=== PATIENT | female | born 1995 | race Caucasian/White ===

== ENCOUNTER 2020-05-02 14:01 | Emergency (ER) | payer OTHER ==
[2020-05-02 14:52] LABS: BASOPHIL 0.2 % (0-2); HCT 39.4 % (37.0-47.0); HGB 12.2 g/dl (12.5-16.0); LYMPHOCYTE 24.1 % (15-48); MCH 23.7 pg (25.0-31.0); MCV 76.7 fL (78.0-100.0); MONOCYTE 5.9 % (0-12); MPV 10.6 fL (6.0-9.5); NEUTROPHIL 65.4 % (41-80); NRBC 0; PLT 463 K/uL (150-400); RBC 5.14 M/uL (4.20-5.40); RDW 15.8 % (11.5-14.0); WBC 12.8 K/uL (4.0-10.5)
[2020-05-02 14:55] LABS: BILIRUBIN NEGATIVE (NEGATIVE); BLOOD NEGATIVE Ery/uL (NEGATIVE); CLARITY CLEAR (CLEAR); COLOR YELLOW (YELLOW); GLUCOSE (U) 3+ mg/dL (NORMAL); LEUKOCYTES NEGATIVE Leu/uL (NEGATIVE); NITRITE NEGATIVE (NEGATIVE); PROTEIN NEGATIVE (NEGATIVE); SPECIFIC GRAVITY 1.025 (1.001-1.030); UROBILINOGEN 0.2 mg/dL (0.2-1.0); pH 5.5 (5.0-9.0)
[2020-05-02 15:09] LABS: ALBUMIN 3.6 g/dL (3.4-5.0); BILIRUBIN - TOTAL 0.3 mg/dL (0.2-1.0); BUN/CREAT RATIO (CALC) 14.7 RATIO; CREATININE 0.68 mg/dL (0.51-0.95); MAGNESIUM 1.7 mg/dL (1.8-2.4); PHOSPHORUS 2.6 mg/dL (2.6-4.7); POTASSIUM 3.8 mmol/L (3.5-5.1); TOTAL PROTEIN 7.6 g/dL (6.4-8.2)
[2020-05-02 16:26] LABS: LACTIC ACID 3.3 mmol/L (0.4-1.9)
== END 2020-05-02 19:35 | disposition home or self-care (01) ==
LOC: FER 14:01
PROVIDERS: Nurse Practitioner Family
DX: E10.65 Type 1 diabetes mellitus with hyperglycemia (principal); R10.84 Generalized abdominal pain; F32.9 Major depressive disorder, single episode, unspecified; Z90.09 Acquired absence of other part of head and neck; Z98.890 Other specified postprocedural states; Z88.1 Allergy status to other antibiotic agents; Z88.5 Allergy status to narcotic agent; Z88.0 Allergy status to penicillin
CPT/HCPCS: 36415; 80053; 81003; 82009; 83605; 83735; 84100; 85025; J7030; Q9967